=== PATIENT | female | born 1965 | race African-American/Black ===

== ENCOUNTER 2017-08-25 14:58 | Emergency (ER) | payer BC, OTHER ==
[2017-08-25 15:18] VITALS: BP 138/83; PULSE 100; TEMP 98.6; BMI 28.3
--- NOTE | 2017-08-25 16:41 | PDOC ---
History of Present Illness - General Chief Complaint: Cold Symptoms Stated Complaint: FACE PRESSURE Time Seen by Provider: 08/25/17 16:23 History Source: Patient Exam Limitations: No Limitations - History of Present Illness Initial Comments: 08/25/17 16:36 Patient is a 52-year-old female, no significant medical history, currently on Flonase for a sinus infection. She reports seeing her doctor on Saturday was diagnosed with sinus infection and told to take Flonase and Claritin patient reports symptoms have persisted with pain to left side of face, left frontal sinus. The patient denies any headache, no temporal pain, no fever, reports having a cold 1 week prior. Past Medical History: [Denies]. Allergies: No known allergies Medications: [None] Family History: Non-contributory Social History: Denies smoking, alcohol use, or IVDU Vital signs on arrival are [notable for pulse of 96.] Review of Systems GENERAL/CONSTITUTIONAL: [No fever or chills. No weakness. No weight change.] HEAD, EYES, EARS, NOSE AND THROAT: [No change in vision. No ear pain or discharge. No sore throat. No temporal pain, left frontal sinus and maxillary pain.] CARDIOVASCULAR: [No chest pain or shortness of breath.] RESPIRATORY: [No cough, wheezing, or hemoptysis.] GASTROINTESTINAL: [No nausea, vomiting, diarrhea or constipation. No rectal bleeding.] GENITOURINARY: [No dysuria, frequency, or change in urination.] MUSCULOSKELETAL: [No joint or muscle swelling or pain. No neck or back pain.] SKIN AND BREASTS: [No rash or easy bruising.] NEUROLOGIC: [No headache, vertigo, loss of consciousness, or loss of sensation.] PSYCHIATRIC: [No depression or anxiety.] ENDOCRINE: [No increased thirst. No abnormal weight change.] HEMATOLOGIC/LYMPHATIC: [No anemia, easy bleeding, or history of blood clots.] ALLERGIC/IMMUNOLOGIC: [No hives or skin allergy. No latex allergy.] Physical Exam: GENERAL: [The patient is awake, alert, and fully oriented, in no acute distress. ] HEAD: [Normal with no signs of trauma.] EYES: [Pupils equal, round and reactive to light, extraocular movements intact, sclera anicteric, conjunctiva clear. Pain to left frontal and maxillary sinus on palpation pain when bending forward no erythema. No edema to face. No temporal pain.] ENT: [Ears normal, nares patent, oropharynx clear without exudates. Moist mucous membranes. No uvula deviation] NECK: [Normal range of motion, supple without lymphadenopathy, JVD, or masses.] LUNGS: [Breath sounds equal, clear to auscultation bilaterally. No wheezes, and no crackles.] HEART: [Regular rate and rhythm, normal S1 and S2 without murmur, rub or gallop. ] ABDOMEN: [Soft, nontender, normoactive bowel sounds. No guarding, no rebound. No masses. No bruising or abrasions] RECTAL : [Guaiac negative, normal rectal tone.] MUSCULOSKELETAL: [Normal range of motion, no edema. No clubbing or cyanosis. No cords, erythema, or tenderness. No CVA Tenderness with fist.] NEUROLOGICAL: [Cranial nerves II through XII grossly intact. Normal speech, normal gait.] PSYCH: [Normal mood, normal affect.] SKIN: [Warm, Dry, normal turgor, no rashes or lesions noted.] Past History - Past Medical History Allergies/Adverse Reactions: Allergies Allergy/AdvReac Type Severity Reaction Status Date / Time No Known Allergies Allergy Verified 08/25/17 15:15 Home Medications: Ambulatory Orders Amox-Tr/K Cl [Augmentin - 875Mg Tablet] 1 tab PO BID #14 tablet 08/25/17 COPD: No - Immunization History Immunization Up to Date: Yes - Suicide/Smoking/Psychosocial Hx Smoking History: Never smoked Hx Alcohol Use: No Drug/Substance Use Hx: No *Physical Exam - Vital Signs Last Vital Signs Temp Pulse Resp BP Pulse Ox 98.6 F 100 H 18 138/83 99 08/25/17 15:15 08/25/17 15:15 08/25/17 15:15 08/25/17 15:15 08/25/17 15:15 Medical Decision Making - Medical Decision Making 08/25/17 16:40 A/P: Patient with clinical signs of sinusitis I will discharge patient home on Augmentin to continue Flonase follow-up with ENT for neurological signs, no temporal pain to indicate a temporal arteritis. No headache. No visual disturbance. No nystagmus. I discussed the physical exam findings, ancillary test results and final diagnoses with the patient. I answered all of the patient's questions. The patient was satisfied with the care received and felt comfortable with the discharge plan and treatment plan. The patient will call to arrange follow-up and will return to the Emergency Department with any new, persistent or worsening symptoms. *DC/Admit/Observation/Transfer Diagnosis at time of Disposition: Sinusitis Qualifiers: Sinusitis location: frontal Chronicity: acute Recurrence: non-recurrent Qualified Code(s): J01.10 - Acute frontal sinusitis, unspecified - Discharge Dispostion Disposition: HOME Condition at time of disposition: Stable Admit: No - Prescriptions Prescriptions: Amox-Tr/K Cl [Augmentin - 875Mg Tablet] 1 tab PO BID #14 tablet - Referrals Referrals: Marvel Angulo [Primary Care Provider] - Jimmy Singh MD [Staff Physician] - - Patient Instructions Printed Discharge Instructions: Sinusitis Additional Instructions: I recommend follow-up with ENT if symptoms persist after being on antibiotics for 3 days. Continue Flonase and Claritin. Elena for pain - Post Discharge Activity Forms/Work/School Notes: Back to Work
[2017-08-25] MEDS ORDERED: IBUPROFEN 600 MG TABLET (FP) PO ONE ×2 (16:42→16:43)
== END 2017-08-25 17:03 | disposition home or self-care (01) ==
LOC: JERFT 14:58
DX: J01.10 Acute frontal sinusitis, unspecified (principal)
CPT/HCPCS: 99281-25

== ENCOUNTER 2017-08-26 19:37 | Emergency (ER) | payer OTHER ==
--- NOTE | 2017-08-26 20:27 | PDOC ---
Rapid Medical Evaluation Time Seen by Provider: 08/26/17 20:27 Medical Evaluation: Allergies Allergy/AdvReac Type Severity Reaction Status Date / Time No Known Allergies Allergy Verified 08/25/17 15:15 08/26/17 20:28 The patient presents with a chief complaint of: Light headedness, numbness and tingling down the arm started at 5:30 this evening lasting approximately 30 minutes. Seen last night for a sinus infection, on augmentin. I have performed a brief in-person evaluation of this patient; Pertinent physical exam findings: ambulatory, in no respiratory distress. Afebrile. EOMI, equal lead engineer strength. Normal speech I have ordered the following: Deferred to Provider The patient will proceed to the ED for further evaluation.
[2017-08-26 20:33] VITALS: TEMP 98.9; BMI 28.3
--- NOTE | 2017-08-26 20:58 | PDOC ---
Attending Attestation - HPI HPI: 08/26/17 22:44 Pt is a 52yo F with a PMHx of Raynaud's and recent sinus infection who presents with unilateral numbness and tingling since 5:30pm this evening. It lasted for about 30 minutes, not associated with weakness, no gait deficits. - Physicial Exam PE: 08/26/17 22:48 GENERAL: Well developed, well nourished. Awake and alert. No acute distress. CARDIOVASCULAR: Regular rate and rhythm. No murmurs, rubs, or gallops. Distal pulses are 2+ and symmetric. PULMONARY: No evidence of respiratory distress. Lungs clear to auscultation bilaterally. No wheezing, rales or rhonchi. ABDOMINAL: Soft. Non-tender. Non-distended. No rebound or guarding. No organomegaly. Normoactive bowel sounds. NEUROLOGICAL: Alert, awake, appropriate. Cranial nerves 2-12 intact. No deficits to light touch and temperature in face, upper extremities and lower extremities. No motor deficits in the in face, upper extremities and lower extremities. Normoreflexic in the upper and lower extremities. Normal speech. Gait is normal without ataxia. - Medical Decision Making 08/26/17 21:01 Documentation prepared by Veronica Moy, acting as medical office asst for Lidya Giles MD. <Veronica Moy - Last Filed: 08/26/17 22:47> - Resident Resident Name: Luciano Wallsmi - ED Attending Attestation I have performed the following: I have examined & evaluated the patient, The case was reviewed & discussed with the resident, I agree w/resident's findings & plan, Exceptions are as noted - Medical Decision Making ct scan ofhead no acute intracranial pathology 08/27/17 00:18 <Lidya Giles - Last Filed: 08/27/17 00:18> NIH Stroke Scale - Last Known Well Date/Time & Onset Date Last Known Well: 08/26/17 Time Last Known Well: 17:30 - Initial Evaluation Level of consciousness: Alert Ask patient the month and their age: Answers both correctly Ask patient to open & close eyes; make fist and let go: Obeys both correctly Best gaze (horizontal eye movement): Normal Visual field testing: No visual field loss Facial paresis (Show teeth/raise eyebrows/close eyes tight): Normal symmetrical movement Motor Function: Left Arm: Normal Motor Function: Right Arm: Normal (extends arm 90 (or 45) degrees for 10 seconds without drift Motor Function: Left Leg: Normal (extends leg 30 degrees for 5 seconds without drift) Motor Function: Right Leg: Normal (extends leg 30 degrees for 5 seconds without drift) Limb Ataxia: No ataxia Sensory(Use pinprick test arms,legs,trunk,face/side to side): Normal Best language (Describe picture, name items, read sentences): No Aphasia Dysarthria (read several words): Normal articulation Extinction and Inattention: No abnormality - Total Score NIH Stroke Scale Score: 0 <Veronica Moy - Last Filed: 08/26/17 22:47>
[2017-08-26 21:14] LABS: BASO % 0.9 % (0-2.0); EOS % 0.8 % (0-4.5); HEMATOCRIT 43.2 % (32.4-45.2); HEMOGLOBIN 14.4 GM/dL (10.7-15.3); LYMPH % 31.5 % (8-40); MCH 30.5 pg (25.7-33.7); MCHC 33.4 g/dl (32.0-36.0); MEAN CELL VOLUME 91.1 fl (80-96); MEAN PLT VOLUME 8.2 fl (7.5-11.1); MONO % 6.8 % (3.8-10.2); PLATELET COUNT 286 K/MM3 (134-434); RBC 4.74 M/mm3 (3.60-5.2); RDW 12.9 % (11.6-15.6); WHITE BLOOD COUNT 6.6 K/mm3 (4.0-10.0)
[2017-08-26 21:16] LABS: URINE APPEARANCE SLCLOUDY; URINE BILIRUBIN NEGATIVE (NEGATIVE); URINE BLOOD NEGATIVE (NEGATIVE); URINE COLOR STRAW; URINE GLUCOSE (UA) NEGATIVE (NEGATIVE); URINE KETONE NEGATIVE (NEGATIVE); URINE NITRITE NEGATIVE (NEGATIVE); URINE PROTEIN NEGATIVE (NEGATIVE); URINE UROBILINOGEN NEGATIVE mg/dL (0.2-1.0)
[2017-08-26 21:17] LABS: URINE LEUK ESTERASE 1+ (NEGATIVE)
[2017-08-26 21:23] LABS: EPI CELLS RARE /HPF (FEW); URINE MUCUS RARE
[2017-08-26 21:27] LABS: INR 0.96 (0.82-1.09); PROTHROMBIN TIME (PATIENT) 10.9 SEC (9.98-11.88)
--- NOTE | 2017-08-26 21:32 | PDOC ---
History of Present Illness - General Chief Complaint: CVA/TIA Stated Complaint: FATIGUE Time Seen by Provider: 08/26/17 20:27 - History of Present Illness Initial Comments: Pt is a 52yo F with a PMHx of Raynaud's and recent sinus infection who presents with unilateral numbness and tingling since 5:30pm this evening. It lasted for about 30 minutes, not associated with weakness, no gait deficits. No prior episodes. For the past 3 weeks patient endorses intermittent dizziness w/ associated nausea. Denies headaches, hx of migraines. Patient was seen in the ER yesterday for sinus infection, treated with Augmentin. She currently only endorses tingling in her L index finger, but states she frequently gets these due to her Raynauds. NIHSS 0 NIH Stroke Scale - Initial Evaluation Level of consciousness: Alert Ask patient the month and their age: Answers both correctly Ask patient to open & close eyes; make fist and let go: Obeys both correctly Best gaze (horizontal eye movement): Normal Visual field testing: No visual field loss Facial paresis (Show teeth/raise eyebrows/close eyes tight): Normal symmetrical movement Motor Function: Left Arm: Normal Motor Function: Right Arm: Normal (extends arm 90 (or 45) degrees for 10 seconds without drift Motor Function: Left Leg: Normal (extends leg 30 degrees for 5 seconds without drift) Motor Function: Right Leg: Normal (extends leg 30 degrees for 5 seconds without drift) Limb Ataxia: No ataxia Sensory(Use pinprick test arms,legs,trunk,face/side to side): Normal Best language (Describe picture, name items, read sentences): No Aphasia Dysarthria (read several words): Normal articulation Extinction and Inattention: No abnormality - Total Score NIH Stroke Scale Score: 0 Past History - Past Medical History Allergies/Adverse Reactions: Allergies Allergy/AdvReac Type Severity Reaction Status Date / Time No Known Allergies Allergy Verified 08/26/17 20:29 Home Medications: Ambulatory Orders Amox-Tr/K Cl [Augmentin - 875Mg Tablet] 1 tab PO BID #14 tablet 08/25/17 Biotin 0 mg PO DAILY 08/26/17 Cholecalciferol (Vitamin D3) [Vitamin D3 -] 0 unit PO DAILY 08/26/17 COPD: No - Immunization History Immunization Up to Date: Yes - Suicide/Smoking/Psychosocial Hx Smoking History: Never smoked Hx Alcohol Use: No Drug/Substance Use Hx: No Review of Systems - Review of Systems Able to Perform ROS?: Yes Constitutional: No: Chills, Diaphoresis, Fever HEENTM: No: Eye Pain, Blurred Vision, Tearing Respiratory: No: Cough, Orthopnea, Shortness of Breath Cardiac (ROS): No: Chest Pain, Edema, Irregular Heart Rate ABD/GI: No: Abdominal Distended, Diarrhea, Nausea : No: Burning, Dysuria, Discharge Musculoskeletal: No: Back Pain, Joint Pain, Muscle Pain Integumentary: No: Bruising, Change in Color, Dryness Neurological: No: Headache, Numbness, Paresthesia Psychiatric: No: Anxiety, Depression Endocrine: No: Excessive Sweating, Flushing Hematologic/Lymphatic: No: Anemia, Blood Clots, Easy Bleeding *Physical Exam - Vital Signs Last Vital Signs Temp Pulse Resp BP Pulse Ox 98.9 F 85 16 151/85 99 08/26/17 20:29 08/26/17 20:29 08/26/17 20:29 08/26/17 20:29 08/26/17 20:29 - Physical Exam Comments: GEN: AAOx3, NAD, Lying comfortably HEENT: PERRLA, EOMi CV: S1, S2, RRR LUNG: CTABL ABD: Soft, NT, ND, normoactive BS MSK: No edema, no erythema NEURO: Full neurological exam performed, CN 2-12 intact, no MSK or sensation intact , no disdiadokinesia ED Treatment Course - LABORATORY CBC & Chemistry Diagram: 08/26/17 21:03 08/26/17 21:35 - ADDITIONAL ORDERS Additional order review: Laboratory Results 08/26/17 08/26/17 21:03 21:03 WBC 6.6 RBC 4.74 Hgb 14.4 Hct 43.2 MCV 91.1 MCH 30.5 MCHC 33.4 RDW 12.9 Plt Count 286 MPV 8.2 Neutrophils % 60.0 Lymphocytes % 31.5 Monocytes % 6.8 Eosinophils % 0.8 Basophils % 0.9 Urine Color Straw Urine Appearance Slcloudy Urine pH 5.0 Ur Specific [place] 1.010 Urine Protein Negative Urine Glucose (UA) Negative Urine Ketones Negative Urine Blood Negative Urine Nitrite Negative Urine Bilirubin Negative Urine Urobilinogen Negative Ur Leukocyte Esterase 1+ H 08/26/17 21:03 RBC 4.74 MCV 91.1 MCHC 33.4 RDW 12.9 MPV 8.2 Neutrophils % 60.0 Lymphocytes % 31.5 Monocytes % 6.8 Eosinophils % 0.8 Basophils % 0.9 Medical Decision Making - Medical Decision Making 52yo F with a PMHx of Raynaud's disease who presents with an isolated 30 minutes of L sided numbness and tingling. She currently only has tingling in her L index finger, but intermittently gets these with her Raynaud's. I suspect this is not a stroke, but will order stroke protocol in precaution. *DC/Admit/Observation/Transfer Diagnosis at time of Disposition: Paresthesias - Discharge Dispostion Disposition: HOME Condition at time of disposition: Improved Admit: No - Referrals Referrals: Marvel Angulo [Primary Care Provider] - 7 days Aguilar Benson MD [Staff Physician] - 7 days - Patient Instructions Additional Instructions: You were seen in the Emergency Room due to L sided numbness and tingling. We ordered labs and imaging, all of which are normal. We do not suspect a stroke. We believe you have an infection affecting your inner ear. We would like you to follow up with a Neurologist. Come back to the ER if you experience similar symptoms. - Post Discharge Activity Forms/Work/School Notes: Back to Work
[2017-08-26 22:11] VITALS: BP 137/89; PULSE 88
[2017-08-26 22:15] LABS: ALBUMIN 3.9 g/dl (3.4-5.0); ALK PHOS 91 U/L (45-117); ANION GAP 8 (8-16); BILIRUBIN,TOTAL 0.3 mg/dL (0.2-1.0); BLOOD UREA NITROGEN 7 mg/dL (7-18); CALCIUM 8.9 mg/dL (8.5-10.1); CHLORIDE 105 mmol/L (98-107); CO2 29 mmol/L (21-32); CREATININE 0.9 mg/dL (0.55-1.02); GLUCOSE,RANDOM 116 mg/dL (74-106); POTASSIUM 3.5 mmol/L (3.5-5.1); SGOT/AST 12 U/L (15-37); SGPT/ALT 17 U/L (12-78); SODIUM 142 mmol/L (136-145); TOT PROT 7.5 g/dl (6.4-8.2)
--- NOTE | 2017-08-28 11:00 | EKG ---
Test Reason : Blood Pressure : / mmHG Vent. Rate : 085 BPM Atrial Rate : 085 BPM P-R Int : 154 ms QRS Dur : 082 ms QT Int : 378 ms P-R-T Axes : 067 013 026 degrees QTc Int : 449 ms NORMAL SINUS RHYTHM POSSIBLE LEFT ATRIAL ENLARGEMENT BORDERLINE ECG WHEN COMPARED WITH ECG OF 20-JUL-2003 09:41, NONSPECIFIC T WAVE ABNORMALITY NOW EVIDENT IN ANTERIOR LEADS Confirmed by ELLEN SORENSON, CATALINA ([id number]) on 08/28/2017 10:59:32 AM Referred By: Confirmed By:CATALINA HUGHES MD
== END 2017-08-26 22:49 | disposition home or self-care (01) ==
LOC: JER 19:37
DX: R20.2 Paresthesia of skin (principal); I73.00 Raynaud's syndrome without gangrene
CPT/HCPCS: 36415; 70450-TC; 71046-TC-FY; 80053; 81003; 81015; 85025; 85610; 86850; 86900; 86901; 93005; 93010; 99282-25

== ENCOUNTER 2018-04-18 17:48 | Observation (INO) | payer OTHER ==
--- NOTE | 2018-04-18 18:04 | PDOC ---
Rapid Medical Evaluation Time Seen by Provider: 04/18/18 17:59 Medical Evaluation: Allergies Allergy/AdvReac Type Severity Reaction Status Date / Time No Known Allergies Allergy Verified 04/18/18 17:58 04/18/18 17:59 I have performed a brief in-person evaluation of the patient The patient presents with a chief complaint of: numbness on right side of face today since 6am. Reports a little blurriness in right eye, no heaviness in tongue and no weakness in limbs Pertinent physical exam findings are: NAD HEENT: PERRLA EOMI even and unlabored breathing neuro: moving all limbs freely, able to raise both eyebrows and close eye tightly I have ordered the following: iv access, labs The patient will proceed to the ED for further evaluation.
[2018-04-18 18:29] LABS: EOS % 0.4 % (0-4.5); HEMATOCRIT 42.3 % (32.4-45.2); HEMOGLOBIN 14.2 GM/dL (10.7-15.3); MCH 30.5 pg (25.7-33.7); MCHC 33.5 g/dl (32.0-36.0); MEAN CELL VOLUME 90.8 fl (80-96); MEAN PLT VOLUME 7.9 fl (7.5-11.1); MONO % 6.3 % (3.8-10.2); NEUT % 50.3 % (42.8-82.8); PLATELET COUNT 261 K/MM3 (134-434); RBC 4.65 M/mm3 (3.60-5.2); RDW 13.9 % (11.6-15.6); WHITE BLOOD COUNT 4.7 K/mm3 (4.0-10.0)
[2018-04-18 19:02] LABS: ALBUMIN 4.5 g/dl (3.4-5.0); ALK PHOS 79 U/L (45-117); ANION GAP 11 MMOL/L (8-16); BILIRUBIN,TOTAL 0.5 mg/dL (0.2-1); BLOOD UREA NITROGEN 7 mg/dL (7-18); CALCIUM 9.8 mg/dL (8.5-10.1); CHLORIDE 104 mmol/L (98-107); CO2 27 mmol/L (21-32); CREATININE 0.8 mg/dL (0.55-1.3); GLUCOSE,RANDOM 96 mg/dL (74-106); POTASSIUM 3.6 mmol/L (3.5-5.1); SGOT/AST 14 U/L (15-37); SGPT/ALT 27 U/L (13-61); SODIUM 142 mmol/L (136-145)
--- NOTE | 2018-04-18 19:20 | PDOC ---
History of Present Illness - General History Source: Patient Exam Limitations: No Limitations - History of Present Illness Initial Comments: 04/18/18 19:14 52 year old female with PMH Glossopharyngeal neuralgia, raynauds, herniated disc , cataracts presenting to ED for right sided facial numbness since this morning. She also complains of one episode of blurry vision to right eye today that self resolved. She denies facial pain, headache, tinnitus, weakness, chest pain, shortness of breath, nausea, vomiting, diarrhea, abdominal pain, dizziness. She states she has had numbness in her right leg for 2-3 weeks, worse today, similar to what she has felt with her herniated disc. She had an MRI of her brain 01/2018, reported as normal. She states she had an endoscopy yesterday for chest discomfort, was told it was normal other than polyps. She complains of a sore throat since the procedure. PCP - Adele Orlando Allergies - NKDA <Nenita Ho - Last Filed: 04/19/18 00:08> <Shane Burk - Last Filed: 04/19/18 01:06> - General Chief Complaint: Head/Neck problem Stated Complaint: NUMBNESS Time Seen by Provider: 04/18/18 17:59 NIH Stroke Scale - Last Known Well Date/Time & Onset Date Last Known Well: 04/18/18 Time Last Known Well: 06:00 - Initial Evaluation Level of consciousness: Alert Ask patient the month and their age: Answers both correctly Ask patient to open & close eyes; make fist and let go: Obeys both correctly Best gaze (horizontal eye movement): Normal Visual field testing: No visual field loss Facial paresis (Show teeth/raise eyebrows/close eyes tight): Normal symmetrical movement Motor Function: Left Arm: Normal Motor Function: Right Arm: Normal (extends arm 90 (or 45) degrees for 10 seconds without drift Motor Function: Left Leg: Normal (extends leg 30 degrees for 5 seconds without drift) Motor Function: Right Leg: Normal (extends leg 30 degrees for 5 seconds without drift) Limb Ataxia: No ataxia Sensory(Use pinprick test arms,legs,trunk,face/side to side): Mild to moderate decrease in sensation Best language (Describe picture, name items, read sentences): No Aphasia Dysarthria (read several words): Normal articulation Extinction and Inattention: No abnormality - Total Score NIH Stroke Scale Score: 1 <Nenita Ho - Last Filed: 04/19/18 00:08> Past History - Past Medical History COPD: No Other medical history: glossopharyngeal - Immunization History Immunization Up to Date: Yes - Suicide/Smoking/Psychosocial Hx Smoking History: Never smoked Hx Alcohol Use: No Drug/Substance Use Hx: No Substance Use Type: None <Nenita Ho - Last Filed: 04/19/18 00:08> <Bhargavi,Shane - Last Filed: 04/19/18 01:06> - Past Medical History Allergies/Adverse Reactions: Allergies Allergy/AdvReac Type Severity Reaction Status Date / Time No Known Allergies Allergy Verified 04/18/18 17:58 Home Medications: Ambulatory Orders Biotin 0 mg PO DAILY 08/26/17 Cholecalciferol (Vitamin D3) [Vitamin D3 -] 1,000 unit PO DAILY 08/26/17 Carbamazepine [Tegretol -] 100 mg PO BID 04/18/18 Review of Systems - Review of Systems Able to Perform ROS?: Yes Comments:: 04/18/18 19:18 General: admits to generalized weakness. denies fever, chills, night sweats. HEENT: admits to sore throat. denies rhinorrhea, ear pain, tinnitus. Heart: denies chest pain, palpitations, syncope, lower extremity swelling, diaphoresis. Respiratory: denies shortness of breath, cough, sputum production, hematemesis. Abdomen: denies abdominal pain, nausea, vomiting, diarrhea, constipation, blood in stool. : denies dysuria, increased urinary frequency, hematuria, urinary incontinence , flank pain. Back: denies back pain. Musculoskeletal: denies joint pain, muscle pain, joint swelling. Neurological: admits to facial numbness, right leg tingling. denies headache, dizziness, weakness, facial pain. Skin: denies rash, laceration, abrasion. <Nenita Ho - Last Filed: 04/19/18 00:08> *Physical Exam - Vital Signs Last Vital Signs Temp Pulse Resp BP Pulse Ox 98.7 F 100 H 18 131/88 100 04/18/18 18:00 04/18/18 18:00 04/18/18 18:00 04/18/18 18:00 04/18/18 18:00 - Physical Exam Comments: 04/18/18 19:20 Constitutional: Well-nourished, Well-developed, appearing stated age. HEENT: head is normocephalic, atraumatic. EOMI. PERRLA. Auditory canals patent bilaterally. TM pearly wright, no erythema, no bulging bilaterally. Neck: supple. Full ROM. Heart: regular rhythm. no murmurs, rubs or gallops. Lungs: clear to auscultation bilaterally. no crackles, rhonchi or wheezing. no stridor. Abdomen: soft, nontender. normal bowel sounds. no rebound, guarding, masses. Extremities: Peripheral pulses intact. No lower extremity edema. Neurological: Alert. Oriented x3. CN2-12 intact. 5/5 strength all extremities. Full sensation all extremities. decreased fine touch sensation to V2, V3 distribution on the right. normal sensation left face. Romberg negative. Finger to nose normal. Gait normal. Psych: awake, alert, oriented x3. Follows commands. Answers questions appropriately. <Nenita Ho - Last Filed: 04/19/18 00:08> - Vital Signs Last Vital Signs Temp Pulse Resp BP Pulse Ox 98.7 F 100 H 18 131/88 100 04/18/18 18:00 04/18/18 18:00 04/18/18 18:00 04/18/18 18:00 04/18/18 18:00 <Shane Burk - Last Filed: 04/19/18 01:06> Heart Score/ECG Review - ECG Impressions Comment:: 04/18/18 22:37 EKG performed at 2206 - NSR, rate 73, normal axis, no acute ST changes. <Nenita Ho - Last Filed: 04/19/18 00:08> ED Treatment Course - LABORATORY CBC & Chemistry Diagram: 04/18/18 18:17 04/18/18 22:07 - ADDITIONAL ORDERS Additional order review: Laboratory Results 04/18/18 18:17 Sodium 142 Potassium 3.6 Chloride 104 Carbon Dioxide 27 Anion Gap 11 BUN 7 Creatinine 0.8 Creat Clearance w eGFR > 60 Random Glucose 96 Calcium 9.8 Total Bilirubin 0.5 AST 14 L ALT 27 Alkaline Phosphatase 79 Total Protein 8.0 Albumin 4.5 04/18/18 18:17 RBC 4.65 MCV 90.8 MCHC 33.5 RDW 13.9 MPV 7.9 Neutrophils % 50.3 Lymphocytes % 42.0 H D Monocytes % 6.3 Eosinophils % 0.4 Basophils % 1.0 <Nenita Ho - Last Filed: 04/19/18 00:08> - LABORATORY CBC & Chemistry Diagram: 04/18/18 18:17 04/18/18 22:07 - ADDITIONAL ORDERS Additional order review: Laboratory Results 04/18/18 04/18/18 04/18/18 22:32 22:07 22:07 PT with INR INR Sodium 140 Potassium 3.8 Chloride 104 Carbon Dioxide 30 Anion Gap 6 L BUN 7 Creatinine 0.7 Creat Clearance w eGFR > 60 Random Glucose 88 Calcium 8.8 Total Bilirubin 0.4 AST 19 ALT 23 Alkaline Phosphatase 66 Creatine Kinase 124 Troponin I < 0.02 Total Protein 7.0 Albumin 3.9 Triglycerides 60 Cholesterol 231 H Total LDL Cholesterol 140 H HDL Cholesterol 94 H Urine Color Yellow Urine Appearance Clear Urine pH 5.0 Ur Specific [place] 1.015 Urine Protein Negative Urine Glucose (UA) Negative Urine Ketones 1+ H Urine Blood Negative Urine Nitrite Negative Urine Bilirubin Negative Urine Urobilinogen Negative Ur Leukocyte Esterase Negative Blood Type Cancelled Antibody Screen Cancelled 04/18/18 04/18/18 22:07 18:17 PT with INR 12.00 INR 1.02 Sodium 142 Potassium 3.6 Chloride 104 Carbon Dioxide 27 Anion Gap 11 BUN 7 Creatinine 0.8 Creat Clearance w eGFR > 60 Random Glucose 96 Calcium 9.8 Total Bilirubin 0.5 AST 14 L ALT 27 Alkaline Phosphatase 79 Creatine Kinase Troponin I Total Protein 8.0 Albumin 4.5 Triglycerides Cholesterol Total LDL Cholesterol HDL Cholesterol Urine Color Urine Appearance Urine pH Ur Specific [place] Urine Protein Urine Glucose (UA) Urine Ketones Urine Blood Urine Nitrite Urine Bilirubin Urine Urobilinogen Ur Leukocyte Esterase Blood Type Antibody Screen 04/18/18 18:17 RBC 4.65 MCV 90.8 MCHC 33.5 RDW 13.9 MPV 7.9 Neutrophils % 50.3 Lymphocytes % 42.0 H D Monocytes % 6.3 Eosinophils % 0.4 Basophils % 1.0 - Medications Given in the ED: ED Medications Discontinued Medications Generic Name Dose Route Start Last Admin Trade Name Freq PRN Reason Stop Dose Admin Aspirin 324 mg 04/18/18 23:59 04/19/18 00:45 Asa - PO 04/19/18 00:00 324 mg ONCE ONE Administration <Shane Burk - Last Filed: 04/19/18 01:06> Medical Decision Making - Medical Decision Making 04/18/18 19:47 52 year old female with PMH Glossopharyngeal neuralgia, raynauds, herniated disc , cataracts presenting to ED for right sided facial pain since this morning associated with an episode of blurry vision today. Initial Vital Signs Temp Pulse Resp BP Pulse Ox 98.7 F 100 H 18 131/88 100 04/18/18 18:00 04/18/18 18:00 04/18/18 18:00 04/18/18 18:00 04/18/18 18:00 Afebrile. Mild tachycardia. No hypoxia. Concern for CVA. - Pending CT head. Neuro paged. 04/18/18 20:[address] Benson, who advises CT head, and admission to obtain MRI to rule out stroke. Pending labs, EKG, CXR, CT head. 04/18/18 20:50 CT head report - no evidence of focal intracranial lesion or hemorrhage seen. CBC WBC 4.7 K/mm3 (4.0-10.0) 04/18/18 18:17 RBC 4.65 M/mm3 (3.60-5.2) 04/18/18 18:17 Hgb 14.2 GM/dL (10.7-15.3) 04/18/18 18:17 Hct 42.3 % (32.4-45.2) 04/18/18 18:17 MCV 90.8 fl (80-96) 04/18/18 18:17 MCH 30.5 pg (25.7-33.7) 04/18/18 18:17 MCHC 33.5 g/dl (32.0-36.0) 04/18/18 18:17 RDW 13.9 % (11.6-15.6) 04/18/18 18:17 Plt Count 261 K/MM3 (134-434) 04/18/18 18:17 MPV 7.9 fl (7.5-11.1) 04/18/18 18:17 Absolute Neuts (auto) 2.3 K/mm3 (1.5-8.0) 04/18/18 18:17 Neutrophils % 50.3 % (42.8-82.8) 04/18/18 18:17 Lymphocytes % 42.0 % (8-40) H D 04/18/18 18:17 Monocytes % 6.3 % (3.8-10.2) 04/18/18 18:17 Eosinophils % 0.4 % (0-4.5) 04/18/18 18:17 Basophils % 1.0 % (0-2.0) 04/18/18 18:17 Nucleated RBC % 0 % (0-0) 04/18/18 18:17 No leukocytosis. No anemia. CMP Sodium 142 mmol/L (136-145) 04/18/18 18:17 Potassium 3.6 mmol/L (3.5-5.1) 04/18/18 18:17 Chloride 104 mmol/L (98-107) 04/18/18 18:17 Carbon Dioxide 27 mmol/L (21-32) 04/18/18 18:17 Anion Gap 11 MMOL/L (8-16) 04/18/18 18:17 BUN 7 mg/dL (7-18) 04/18/18 18:17 Creatinine 0.8 mg/dL (0.55-1.3) 04/18/18 18:17 Creat Clearance w eGFR > 60 (>60) 04/18/18 18:17 Random Glucose 96 mg/dL (74-106) 04/18/18 18:17 Calcium 9.8 mg/dL (8.5-10.1) 04/18/18 18:17 Total Bilirubin 0.5 mg/dL (0.2-1) 04/18/18 18:17 AST 14 U/L (15-37) L 04/18/18 18:17 ALT 27 U/L (13-61) 04/18/18 18:17 Alkaline Phosphatase 79 U/L (45-117) 04/18/18 18:17 Total Protein 8.0 g/dl (6.4-8.2) 04/18/18 18:17 Albumin 4.5 g/dl (3.4-5.0) 04/18/18 18:17 No electrolyte abnormality. LFTs normal. 04/18/18 22:41 Pt will be admitted for possible CVA per neuro request. Urine Test Results Urine Color Yellow 04/18/18: Urine Appearance Clear 04/18/18: Urine pH 5.0 (5.0-8.0) 04/18/18: Ur Specific [place] 1.015 (1.001-1.035) 04/18/18: Urine Protein Negative (NEGATIVE) 04/18/18: Urine Glucose (UA) Negative (NEGATIVE) 04/18/18: Urine Ketones 1+ (NEGATIVE) H 04/18/18: Urine Blood Negative (NEGATIVE) 04/18/18: Urine Nitrite Negative (NEGATIVE) 04/18/18: Urine Bilirubin Negative (<2.0 mg/dL) 04/18/18: Ur Leukocyte Esterase Negative (NEGATIVE) 04/18/18: No evidence of UTI. 04/19/18 00:[address] Marie, who will accept the admission and assume care for the patient. <Nenita Ho - Last Filed: 04/19/18 00:08> *DC/Admit/Observation/Transfer - Discharge Dispostion Decision to Admit order: Yes <Nenita Ho - Last Filed: 04/19/18 00:08> - Discharge Dispostion Decision to Admit order: Yes <Shane Burk - Last Filed: 04/19/18 01:06> Diagnosis at time of Disposition: Facial numbness - Discharge Dispostion Condition at time of disposition: Stable
--- NOTE | 2018-04-18 19:27 | PDOC ---
Attending Attestation - HPI HPI: 04/18/18 19:38 The patient is a 52 year old female, with a significant past medical history of Raynaud's, Glossopharyngeal neuralgia, herniated discs, and cataracts, who presents to the emergency department with, right lower facial numbness without pain and blurred vision of the right eye. She had an endoscopy done yesterday awaiting results and a brain MRI done 01/2018 without pertinent findings. The patient denies any recent shortness of breath, weakness, or headache. Allergies: NKDA Social history: Nonsmoker. Denies EtOH use and recreational drug use. Primary Care Physician: Dr. Angulo - Medical Decision Making 04/18/18 19:[address] Prem Benson's answering service, healthcare management consultant neurologist, awaiting call back. 04/18/18 20:[address] Benson, case discussed with resident Dr. Nenita Ho. <Raji Gan - Last Filed: 04/18/18 20:13> - Resident Resident Name: Nenita Ho - ED Attending Attestation I have performed the following: I have examined & evaluated the patient, The case was reviewed & discussed with the resident, I agree w/resident's findings & plan, Exceptions are as noted - Physicial Exam PE: 04/18/18 21:00 Patient is awake and alert, resting comfortably, in no distress Normocephalic, atraumatic PERRLA, EOMI, no nystagmus; visual corea are intact bilaterally; No carotid bruits CTA RRR Cranial nerves II through XII are grossly intact; motor is 5/54; no pronation drift; gait is stable. Fine touch is decreased in V2 and V3 distribution on the right; 04/18/18 21:04 - Medical Decision Making 04/18/18 21:02 52-year-old female with history of Raynaud's syndrome and glossopharyngeal neuralgia presents with paresthesias to the lower half of the right side of face without any other associated symptoms. Differential includes CVA versus TIA versus peripheral peripheral neuropathy. Case discussed with neurology. Cannot rule out stroke at this time without an MRI. CT of head shows no results of acute intracranial pathology. We'll administer aspirin, will admit for further evaluation and treatment. 04/18/18 23:58 Patient not a TPA candidate due to onset of symptoms more than 3 hours prior to arrival as well as a low and H2 scale of 1. <Shane Burk - Last Filed: 04/18/18 23:59> NIH Stroke Scale - Last Known Well Date/Time & Onset Date Last Known Well: 04/18/18 Time Last Known Well: 06:00 - Initial Evaluation Level of consciousness: Alert Ask patient the month and their age: Answers both correctly Ask patient to open & close eyes; make fist and let go: Obeys both correctly Best gaze (horizontal eye movement): Normal Visual field testing: No visual field loss Facial paresis (Show teeth/raise eyebrows/close eyes tight): Normal symmetrical movement Motor Function: Left Arm: Normal Motor Function: Right Arm: Normal (extends arm 90 (or 45) degrees for 10 seconds without drift Motor Function: Left Leg: Normal (extends leg 30 degrees for 5 seconds without drift) Motor Function: Right Leg: Normal (extends leg 30 degrees for 5 seconds without drift) Limb Ataxia: No ataxia Sensory(Use pinprick test arms,legs,trunk,face/side to side): Mild to moderate decrease in sensation Best language (Describe picture, name items, read sentences): No Aphasia Dysarthria (read several words): Normal articulation Extinction and Inattention: No abnormality - Total Score NIH Stroke Scale Score: 1 <Shane Burk - Last Filed: 04/18/18 23:59> Attestations - Attestations 04/18/18 19:38 Documentation prepared by Raji Gan, acting as biomedical instrument technician for Shane Burk MD. <Raji Gan - Last Filed: 04/18/18 20:13>
[2018-04-18] MEDS ORDERED: SODIUM CHLORIDE 1,000 ML IV SCH (20:15)
[2018-04-18 22:44] LABS: URINE APPEARANCE CLEAR; URINE BILIRUBIN NEGATIVE (<2.0 mg/dL); URINE COLOR YELLOW; URINE GLUCOSE (UA) NEGATIVE (NEGATIVE); URINE KETONE 1+ (NEGATIVE); URINE LEUK ESTERASE NEGATIVE (NEGATIVE); URINE NITRITE NEGATIVE (NEGATIVE); URINE PROTEIN NEGATIVE (NEGATIVE); URINE UROBILINOGEN NEGATIVE mg/dL (0.2-1.0)
[2018-04-18 22:57] LABS: ALBUMIN 3.9 g/dl (3.4-5.0); ALK PHOS 66 U/L (45-117); ANION GAP 6 MMOL/L (8-16); BILIRUBIN,TOTAL 0.4 mg/dL (0.2-1); BLOOD UREA NITROGEN 7 mg/dL (7-18); CALCIUM 8.8 mg/dL (8.5-10.1); CHLORIDE 104 mmol/L (98-107); CHOLESTEROL 231 mg/dL (50-200); CO2 30 mmol/L (21-32); CREATININE 0.7 mg/dL (0.55-1.3); GLUCOSE,RANDOM 88 mg/dL (74-106); HDL CHOLESTEROL 94 mg/dL (40-60); SGPT/ALT 23 U/L (13-61); SODIUM 140 mmol/L (136-145); TRIGLYCERIDES 60 mg/dL (0-150)
[2018-04-18 23:03] LABS: POTASSIUM 3.8 mmol/L (3.5-5.1); SGOT/AST 19 U/L (15-37)
[2018-04-18 23:27] LABS: INR 1.02 (0.83-1.09)
[2018-04-18] MEDS ORDERED: ASPIRIN 81 MG CHEWABLE TABLETS PO ONE (23:59)
--- NOTE | 2018-04-19 00:22 | HP ---
CHIEF COMPLAINT: Facial Numbness PCP: Dr. Angulo ([facility]) HISTORY OF PRESENT ILLNESS: 52 y/o F with PMHx on Glossopharyngeal neuralgia (on Carbamazepine) Raynauds syndrome, herniated disc and bilateral cataracts presents to [facility] ED for Right sided facial numbness since this morning. Patient has had left sided numbness in the past that has improved with Carbamazepine however today she presents with Constant numbness over her right cheek for the first time. The numbness does not change with jaw opening or closing and does not change with pressing on her face. She denies any trauma, recent falls, rashes or injections to the area. She is unable to identify any exacerbating or relieving factors. Currently , her numbness has improved and she believes she is regaining feeling in her face. She also experienced a single episode of blurry vision in her right eye that has since resolved. She additionally complains of tinnitus that is present during my interview. She complains of a sore throat from an endoscopy yesterday but denies any difficulty swallowing. Patient feels numbness, tingling since January that radiates down her right leg, she says is due to her disk herniation. Denies facial pain, headache, visual aura, weakness, fevers, chills chest pain, shortness of breath, nausea, vomiting, dizziness. Her only recent medication change is decreasing her Carbamazepine dose from 200mg Daily to 100mg Daily. Denies any sick contacts. ER course was notable for: (1) Neurology (Dr. Benson) consulted (2) ASA 324mg, NS 1 Bolus (3) Head CT without Contrast: No evidence of a focal intracranial lesion or hemorrhage seen. Recent Travel: [employer] this past January [place] this past December PAST MEDICAL HISTORY: As per HPI PAST SURGICAL HISTORY: Hysterectomy Social History: Smoking: Denies Alcohol: Denies Drugs: Denies Family History: mom: Lung Ca Dad: Heart Disease Allergies No Known Allergies Allergy (Verified 04/18/18 17:58) HOME MEDICATIONS: Home Medications Medication Instructions Recorded Biotin 0 mg PO DAILY 08/26/17 Cholecalciferol (Vitamin D3) 1,000 unit PO DAILY 08/26/17 [Vitamin D3 -] Carbamazepine [Tegretol -] 100 mg PO BID 04/18/18 REVIEW OF SYSTEMS CONSTITUTIONAL: Absent: fever, chills, diaphoresis, generalized weakness, malaise, loss of appetite, weight change HEENT: Present: throat pain Absent: rhinorrhea, nasal congestion, throat swelling, difficulty swallowing, mouth swelling, ear pain, eye pain, visual changes CARDIOVASCULAR: Absent: chest pain, syncope, palpitations, irregular heart rate, lightheadedness , peripheral edema RESPIRATORY: Absent: cough, shortness of breath, dyspnea with exertion, orthopnea, wheezing, stridor, hemoptysis GASTROINTESTINAL: Absent: abdominal pain, abdominal distension, nausea, vomiting, diarrhea, constipation, melena, hematochezia GENITOURINARY: Absent: dysuria, frequency, urgency, hesitancy, hematuria, flank pain, genital pain MUSCULOSKELETAL: Absent: myalgia, arthralgia, joint swelling, back pain, neck pain SKIN: Absent: rash, itching, pallor HEMATOLOGIC/IMMUNOLOGIC: Absent: easy bleeding, easy bruising, lymphadenopathy, frequent infections ENDOCRINE: Absent: unexplained weight gain, unexplained weight loss, heat intolerance, cold intolerance NEUROLOGIC: Present: Facial numbness Absent: headache, focal weakness or paresthesias, dizziness, unsteady gait, seizure, mental status changes, bladder or bowel incontinence PSYCHIATRIC: Absent: anxiety, depression, suicidal or homicidal ideation, hallucinations. PHYSICAL EXAMINATION Vital Signs - 24 hr 04/18/18 18:00 Temperature 98.7 F Pulse Rate 100 H Respiratory 18 Rate Blood Pressure 131/88 O2 Sat by Pulse 100 Oximetry (%) GENERAL: Awake, alert, and fully oriented, in no acute distress. HEAD: NCAT EYES: PERRLA, EOMI THROAT: Oropharynx clear without exudates. Moist mucous membranes. Uvula Midline. NECK: Normal ROM, No JVD, No Carotid Bruit LUNGS: Breath sounds equal, clear to auscultation bilaterally. No wheezes. HEART: Regular rate and rhythm, normal S1 and S2 without murmur ABDOMEN: Soft, nontender, not distended, normoactive bowel sounds, no guarding LOWER EXTREMITIES: 2+ pulses. No calf tenderness. No peripheral edema. NEUROLOGICAL: A&Ox3, Cranial nerves II-XII intact. Normal speech. Normal gait. 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 C5-T1 and L4-S1 gross sensation intact. 2+ patellar reflex, No Pronator drift. Rapid alternating hand movements, heel to lugo and finger to nose all intact. PSYCHIATRIC: Cooperative. Good eye contact. Appropriate mood and affect. SKIN: Warm, dry, no rashes or lesions noted Laboratory Results - last 24 hr 04/18/18 04/18/18 04/18/18 18:17 18:17 22:07 WBC 4.7 RBC 4.65 Hgb 14.2 Hct 42.3 MCV 90.8 MCH 30.5 MCHC 33.5 RDW 13.9 Plt Count 261 MPV 7.9 Absolute Neuts (auto) 2.3 Neutrophils % 50.3 Lymphocytes % 42.0 H D Monocytes % 6.3 Eosinophils % 0.4 Basophils % 1.0 Nucleated RBC % 0 PT with INR 12.00 INR 1.02 Sodium 142 Potassium 3.6 Chloride 104 Carbon Dioxide 27 Anion Gap 11 BUN 7 Creatinine 0.8 Creat Clearance w eGFR > 60 Random Glucose 96 Calcium 9.8 Total Bilirubin 0.5 AST 14 L ALT 27 Alkaline Phosphatase 79 Creatine Kinase Troponin I Total Protein 8.0 Albumin 4.5 Triglycerides Cholesterol Total LDL Cholesterol HDL Cholesterol Urine Color Urine Appearance Urine pH Ur Specific [place] Urine Protein Urine Glucose (UA) Urine Ketones Urine Blood Urine Nitrite Urine Bilirubin Urine Urobilinogen Ur Leukocyte Esterase Blood Type Antibody Screen 04/18/18 04/18/18 04/18/18 22:07 22:07 22:32 WBC RBC Hgb Hct MCV MCH MCHC RDW Plt Count MPV Absolute Neuts (auto) Neutrophils % Lymphocytes % Monocytes % Eosinophils % Basophils % Nucleated RBC % PT with INR INR Sodium 140 Potassium 3.8 Chloride 104 Carbon Dioxide 30 Anion Gap 6 L BUN 7 Creatinine 0.7 Creat Clearance w eGFR > 60 Random Glucose 88 Calcium 8.8 Total Bilirubin 0.4 AST 19 ALT 23 Alkaline Phosphatase 66 Creatine Kinase 124 Troponin I < 0.02 Total Protein 7.0 Albumin 3.9 Triglycerides 60 Cholesterol 231 H Total LDL Cholesterol 140 H HDL Cholesterol 94 H Urine Color Yellow Urine Appearance Clear Urine pH 5.0 Ur Specific [place] 1.015 Urine Protein Negative Urine Glucose (UA) Negative Urine Ketones 1+ H Urine Blood Negative Urine Nitrite Negative Urine Bilirubin Negative Urine Urobilinogen Negative Ur Leukocyte Esterase Negative Blood Type Cancelled Antibody Screen Cancelled Active Medications Carbamazepine (Tegretol -) 100 mg PO DAILY [place] Sodium Chloride (Normal Saline -) 1,000 mls @ 42 mls/hr IV ASDIR [facility] Last Admin: 04/19/18 00:45 Dose: 42 mls/hr ASSESSMENT/PLAN: 52 y/o F with PMHx on Glossopharyngeal neuralgia (on Carbamazepine) Raynauds syndrome, herniated disc and bilateral cataracts presents to [facility] ED for Right sided facial. 1. Right sided facial numbness -No focal neurological deficits noted on exam however patient complains of right side facial numbness Accompanied by Right eye blurry vision and Tinnitus, Will need to r/o CVA/TIA -Unclear if this is a manifestation of her recent decrease in Carbamazepine dose from 200mg Daily to 100mg Daily -Neurology (Dr. Benson) consulted by ED, Given ASA 324mg -Head CT without Contrast: No evidence of a focal intracranial lesion or hemorrhage seen -Cholesterol 231, Total LDL Cholesterol 140 -Echo ordered -Can consider Brain MRI, Carotid Dopplers pending neuro eval -continue to monitor on Tele, Neuro checks Q4h 2. Right Leg Numbness, Tingling - chronic -Patient says this is due to her disk herniation -Can consider further spine imaging or workup as outpatient pending Neuro eval -Neurology (Dr. Benson) consulted 3. Glossopharyngeal neuralgia -Restarted home dose Carbamazepine, Will need med reconciled 4. FEN -PO Fluids -Lytes WNL -Regular diet 5. PPx - DVTs: SCDs, will hold heparin in the setting of possible CVA Dispo: Tele-Obs, Will need med reconciled Visit type - Emergency Visit Emergency Visit: Yes ED Registration Date: 04/18/18 Care time: The patient presented to the Emergency Department on the above date and was hospitalized for further evaluation of their emergent condition. - New Patient This patient is new to me today: Yes Date on this admission: 04/19/18 - Critical Care Critical Care patient: No Hospitalist Screening - Colonoscopy Questionnaire Colonoscopy Questionnaire: Colonoscopy Questionnaire - Patient: 50 - 75 years old and never had a screening colonoscopy: Unknown History of colon or rectal polyps, or CA: Unknown History of IBD, Crohn's disease or UC: Unknown History of abdominal radiation therapy as a child: Unknown - Relative: 1 with colon or rectal CA, or polyps at age 60 or younger: Unknown Colon or rectal CA diagnosed at age 45 or younger: Unknown Multiple relatives with colon or rectal CA: Unknown - Outcome: Screening Result: Negative Screen
[2018-04-19] MEDS ORDERED: ASPIRIN COATED 81 MG TABLET.EC ONE (00:47)
--- NOTE | 2018-04-19 05:47 | PN ---
Teaching Attending Note Name of Resident: Nata Banerjee ATTENDING PHYSICIAN STATEMENT I saw and evaluated the patient. I reviewed the resident's note and discussed the case with the resident. I agree with the resident's findings and plan as documented. SUBJECTIVE: OBJECTIVE: ASSESSMENT AND PLAN: this is a 52F old female with hx glossopharngeal neuralgia presented to the hospital for right sided facial pain, patient admitted for TIA plan: admit to tele for observation neurloogy evaluation neurological watch continue carbamezapine for the neuralgia [patient is complaining of numbness in the lower ext on the right buttocks extending to the thigh, without any fecal or urine incontinence, no limb weakness. patient stated she has history of herniated disk - neurology evaluation for the herniated disk.
[2018-04-19 07:08] LABS: BASO % 0.6 % (0-2.0); EOS % 1.4 % (0-4.5); HEMATOCRIT 36.6 % (32.4-45.2); HEMOGLOBIN 12.2 GM/dL (10.7-15.3); LYMPH % 60.6 % (8-40); MCH 30.2 pg (25.7-33.7); MCHC 33.4 g/dl (32.0-36.0); MEAN CELL VOLUME 90.4 fl (80-96); MEAN PLT VOLUME 8.1 fl (7.5-11.1); NEUT % 28.4 % (42.8-82.8); PLATELET COUNT 216 K/MM3 (134-434); RBC 4.04 M/mm3 (3.60-5.2); RDW 13.7 % (11.6-15.6); WHITE BLOOD COUNT 4.2 K/mm3 (4.0-10.0)
[2018-04-19 07:56] LABS: ALBUMIN 3.5 g/dl (3.4-5.0); ALK PHOS 62 U/L (45-117); ANION GAP 9 MMOL/L (8-16); BILIRUBIN,TOTAL 0.5 mg/dL (0.2-1); BLOOD UREA NITROGEN 7 mg/dL (7-18); CALCIUM 9.1 mg/dL (8.5-10.1); CHLORIDE 106 mmol/L (98-107); CO2 28 mmol/L (21-32); CREATININE 0.6 mg/dL (0.55-1.3); GLUCOSE,RANDOM 75 mg/dL (74-106); MAGNESIUM 2.3 mg/dL (1.8-2.4); PHOSPHOROUS 4.3 mg/dL (2.5-4.9); POTASSIUM 3.4 mmol/L (3.5-5.1); SGOT/AST 9 U/L (15-37); SGPT/ALT 20 U/L (13-61); SODIUM 143 mmol/L (136-145); TOT PROT 6.2 g/dl (6.4-8.2)
[2018-04-19] MEDS ORDERED: POTASSIUM CHLORIDE TABS 20 MEQ TABLET.ER (FP) PO ONE (08:57)
--- NOTE | 2018-04-19 09:51 | DS ---
Physical Exam: SUBJECTIVE: Patient seen and examined Patient is feeling better, stated that she started to experience numbness on right side of her face for 6 weeks now. No fever or chills, has facial neuralgia on the left side started a year ago that she takes Tegretol for it. Patient states that she is stressed out. OBJECTIVE: Vital Signs Temperature 97.8 F 04/19/18 06:30 Pulse Rate 62 04/19/18 06:30 Respiratory Rate 18 04/19/18 06:30 Blood Pressure 137/72 04/19/18 06:30 O2 Sat by Pulse Oximetry (%) 99 04/19/18 03:23 PHYSICAL EXAM GENERAL: The patient is awake, alert, and fully oriented, in no acute distress. HEAD: Normal with no signs of trauma. EYES: PERRL, extraocular movements intact, sclera anicteric, conjunctiva clear. ENT: Ears normal, oropharynx clear without exudates, moist mucous membranes. NECK: Trachea midline, full range of motion, supple. LUNGS: Breath sounds equal, clear to auscultation bilaterally, no wheezes, no crackles, no accessory muscle use. HEART: Regular rate and rhythm, S1, S2 without murmur, rub or gallop. ABDOMEN: Soft, nontender, nondistended, normoactive bowel sounds, no guarding, no rebound, no hepatosplenomegaly, no masses appreciated. EXTREMITIES: 2+ pulses, warm, well-perfused, no edema. NEUROLOGICAL: Cranial nerves II through XII grossly intact. Normal speech, gait not observed. sensation is intact, right facial area decreased sensations > than the left. PSYCH: Normal mood, normal affect. SKIN: Warm, dry, normal turgor, no rashes or lesions noted. Muscu: tenderness on palpation on the right side of her neck. LABS CBCD WBC 4.2 K/mm3 (4.0-10.0) 04/19/18 05:30 RBC 4.04 M/mm3 (3.60-5.2) 04/19/18 05:30 Hgb 12.2 GM/dL (10.7-15.3) 04/19/18 05:30 Hct 36.6 % (32.4-45.2) 04/19/18 05:30 MCV 90.4 fl (80-96) 04/19/18 05:30 MCHC 33.4 g/dl (32.0-36.0) 04/19/18 05:30 RDW 13.7 % (11.6-15.6) 04/19/18 05:30 Plt Count 216 K/MM3 (134-434) 04/19/18 05:30 MPV 8.1 fl (7.5-11.1) 04/19/18 05:30 CMP Sodium 143 mmol/L (136-145) 04/19/18 05:30 Potassium 3.4 mmol/L (3.5-5.1) L 04/19/18 05:30 Chloride 106 mmol/L (98-107) 04/19/18 05:30 Carbon Dioxide 28 mmol/L (21-32) 04/19/18 05:30 Anion Gap 9 MMOL/L (8-16) 04/19/18 05:30 BUN 7 mg/dL (7-18) 04/19/18 05:30 Creatinine 0.6 mg/dL (0.55-1.3) 04/19/18 05:30 Creat Clearance w eGFR > 60 (>60) 04/19/18 05:30 Random Glucose 75 mg/dL (74-106) 04/19/18 05:30 Calcium 9.1 mg/dL (8.5-10.1) 04/19/18 05:30 Total Bilirubin 0.5 mg/dL (0.2-1) 04/19/18 05:30 AST 9 U/L (15-37) L 04/19/18 05:30 ALT 20 U/L (13-61) 04/19/18 05:30 Alkaline Phosphatase 62 U/L (45-117) 04/19/18 05:30 Total Protein 6.2 g/dl (6.4-8.2) L 04/19/18 05:30 Albumin 3.5 g/dl (3.4-5.0) 04/19/18 05:30 CARDIAC ENZYMES Creatine Kinase 124 IU/L (26-192) 04/18/18 22:07 Troponin I < 0.02 ng/ml (0.00-0.05) 04/18/18 22:07 Current Medications Generic Name Dose Route Start Last Admin Trade Name Freq PRN Reason Stop Dose Admin Carbamazepine 100 mg 04/19/18 10:00 Tegretol - PO DAILY [place] Sodium Chloride 1,000 mls @ 42 mls/hr 04/18/18 20:15 04/19/18 00:45 Normal Saline - IV 42 mls/hr [facility] Administration Home Medications Medication Instructions Recorded Biotin 0 mg PO DAILY 08/26/17 Cholecalciferol (Vitamin D3) 1,000 unit PO DAILY 08/26/17 [Vitamin D3 -] Carbamazepine [Tegretol -] 100 mg PO DAILY 04/18/18 Laboratory Tests 04/18/18 22:07 Triglycerides 60 Cholesterol 231 H Total LDL Cholesterol 140 H HDL Cholesterol 94 H HOSPITAL COURSE: Date of Admission:04/18/18 Date of Discharge: 04/19/18 52 y/o F with 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 ED for Right sided facial numbness. # Right sided facial numbness as per patient for 6 weeks. patient had an MRi/ MRA done 6 weeks ago as per patient with negative findings.Will wait for Neuro evaluation. # EKG: LVH , discussed with the patient to follow with her primary and have echo done as an outpatient and and an stress test. will recommend cardiology for her. #Right sided Neck tenderness: will give her one dose of Flexeril and reevaluate her. # Hypokalemia will replete , ordered one dose of Kdur. # High HDL which is good, due to her daily exercise, elevated cholesterol and LDL, will suggest dietary changes low fat/low carb.diet. #Hx of Glossopharyngeal neuralgia continue Carbamazepine DVTs: SCDs once gets evaluated by the neuro will discharge her home. Discharge Summary Reason For Visit: NUMBNESS OF FACE Current Active Problems Facial numbness (Acute) Condition: Stable - Instructions Referrals: Marvel Angulo [Primary Care Provider] - - Home Medications Comprehensive Discharge Medication List: Ambulatory Orders Biotin 0 mg PO DAILY 08/26/17 Cholecalciferol (Vitamin D3) [Vitamin D3 -] 1,000 unit PO DAILY 08/26/17 Carbamazepine [Tegretol -] 100 mg PO DAILY 04/18/18
[2018-04-19] MEDS: carBAMazepine 100 MG TAB.CHEW PO SCH (10:00)
[2018-04-19] MEDS ORDERED: CYCLOBENZAPRINE HCL 10 MG TABLET (FP) PO ONE (10:00)
[2018-04-19 13:44] LABS: ANISOCYTOSIS 0; MACROCYTOSIS 0; PLATELET ESTIMATE NORMAL
--- NOTE | 2018-04-19 15:53 | CON.NEURO ---
Consult - Alcohol/Substance Use Hx Alcohol Use: No - Smoking History Smoking history: Never smoked Home Medications - Allergies Allergies/Adverse Reactions: Allergies Allergy/AdvReac Type Severity Reaction Status Date / Time No Known Allergies Allergy Verified 04/18/18 17:58 - Home Medications Home Medications: Ambulatory Orders Biotin 0 mg PO DAILY 08/26/17 Cholecalciferol (Vitamin D3) [Vitamin D -] 1,000 unit PO DAILY 08/26/17 Carbamazepine [Tegretol -] 100 mg PO DAILY 04/18/18 Physical Exam-Neuro Vital Signs: Vital Signs Temperature 98 F 04/19/18 14:36 Pulse Rate 88 04/19/18 14:36 Respiratory Rate 18 04/19/18 14:36 Blood Pressure 122/80 04/19/18 14:36 O2 Sat by Pulse Oximetry (%) 99 04/19/18 03:23 Labs: CBC, BMP 04/19/18 05:30 04/19/18 05:30 INR, PTT INR 1.02 (0.83-1.09) 04/18/18 22:07 Assessment/Plan cc Right face numbness HPI 52 year old female hsitory of Glosspharyngeal neuralgia ( cbz) and Reynauds syndrome, Lumbar herniated disc, and cataract. She developed right side of face numbness and now getting better. She denies any facial pain and face numbness. Patient had ct head is normal. She did have mri of brain in february 2018 and it was unremarkable. She denies any history of smoking, htn , hld or any family member having stroke at young age. She also have right leg tinglign numbness, and she has PMH as above PSH: Hysterectomy Social Hx: Denies any toxic habits, works at [employer] Family History: mom: Lung Ca Dad: Heart Disease Allergies No Known Allergies Allergy (Verified 04/18/18 17:58) HOME MEDICATIONS: Home Medications Medication Instructions Recorded Biotin 0 mg PO DAILY 08/26/17 Cholecalciferol (Vitamin D3) 1,000 unit PO DAILY 08/26/17 [Vitamin D3 -] Carbamazepine [Tegretol -] 100 mg PO BID 04/18/18 Neurological Examination Alert oriented x 3, speech is normal EOMI, PUPILS REACTIVE, no face asymmetry there is no diminshed sensation on right side of face 5/5 all ext sensation is normal reflex are symmetrical CT head unremarkable Assessment- Right sided face numbness, symptoms are resolving, no history of Migraine, or seizure or vascular risk factor for stroke. It could be nonspecific but stroke or Demyelinating lesion need to be ruled out Plan - suggest to do mri of brain and carotid ultrasound - spoke to primary team and continue apsirin for now - will continue to follow Thanking you so much Aguilar Benson MD
--- NOTE | 2018-04-19 17:23 | PN ---
Physical Exam: SUBJECTIVE: Patient seen and examined Patient is feeling better, stated that she started to experience numbness on right side of her face for 6 weeks now. No fever or chills, has facial neuralgia on the left side started a year ago that she takes Tegretol for it. Patient states that she is stressed out. OBJECTIVE: Vital Signs Temperature 97.8 F 04/19/18 06:30 Pulse Rate 62 04/19/18 06:30 Respiratory Rate 18 04/19/18 06:30 Blood Pressure 137/72 04/19/18 06:30 O2 Sat by Pulse Oximetry (%) 99 04/19/18 03:23 PHYSICAL EXAM GENERAL: The patient is awake, alert, and fully oriented, in no acute distress. HEAD: Normal with no signs of trauma. EYES: PERRL, extraocular movements intact, sclera anicteric, conjunctiva clear. ENT: Ears normal, oropharynx clear without exudates, moist mucous membranes. NECK: Trachea midline, full range of motion, supple. LUNGS: Breath sounds equal, clear to auscultation bilaterally, no wheezes, no crackles, no accessory muscle use. HEART: Regular rate and rhythm, S1, S2 without murmur, rub or gallop. ABDOMEN: Soft, nontender, nondistended, normoactive bowel sounds, no guarding, no rebound, no hepatosplenomegaly, no masses appreciated. EXTREMITIES: 2+ pulses, warm, well-perfused, no edema. NEUROLOGICAL: Cranial nerves II through XII grossly intact. Normal speech, sensation is intact, right facial area decreased sensations > than the left. PSYCH: Normal mood, normal affect. SKIN: Warm, dry, normal turgor, no rashes or lesions noted. Muscu: tenderness on palpation on the right side of her neck. LABS CBCD WBC 4.2 K/mm3 (4.0-10.0) 04/19/18 05:30 RBC 4.04 M/mm3 (3.60-5.2) 04/19/18 05:30 Hgb 12.2 GM/dL (10.7-15.3) 04/19/18 05:30 Hct 36.6 % (32.4-45.2) 04/19/18 05:30 MCV 90.4 fl (80-96) 04/19/18 05:30 MCHC 33.4 g/dl (32.0-36.0) 04/19/18 05:30 RDW 13.7 % (11.6-15.6) 04/19/18 05:30 Plt Count 216 K/MM3 (134-434) 04/19/18 05:30 MPV 8.1 fl (7.5-11.1) 04/19/18 05:30 CMP Sodium 143 mmol/L (136-145) 04/19/18 05:30 Potassium 3.4 mmol/L (3.5-5.1) L 04/19/18 05:30 Chloride 106 mmol/L (98-107) 04/19/18 05:30 Carbon Dioxide 28 mmol/L (21-32) 04/19/18 05:30 Anion Gap 9 MMOL/L (8-16) 04/19/18 05:30 BUN 7 mg/dL (7-18) 04/19/18 05:30 Creatinine 0.6 mg/dL (0.55-1.3) 04/19/18 05:30 Creat Clearance w eGFR > 60 (>60) 04/19/18 05:30 Random Glucose 75 mg/dL (74-106) 04/19/18 05:30 Calcium 9.1 mg/dL (8.5-10.1) 04/19/18 05:30 Total Bilirubin 0.5 mg/dL (0.2-1) 04/19/18 05:30 AST 9 U/L (15-37) L 04/19/18 05:30 ALT 20 U/L (13-61) 04/19/18 05:30 Alkaline Phosphatase 62 U/L (45-117) 04/19/18 05:30 Total Protein 6.2 g/dl (6.4-8.2) L 04/19/18 05:30 Albumin 3.5 g/dl (3.4-5.0) 04/19/18 05:30 CARDIAC ENZYMES Creatine Kinase 124 IU/L (26-192) 04/18/18 22:07 Troponin I < 0.02 ng/ml (0.00-0.05) 04/18/18 22:07 Current Medications Generic Name Dose Route Start Last Admin Trade Name Freq PRN Reason Stop Dose Admin Carbamazepine 100 mg 04/19/18 10:00 Tegretol - PO DAILY [place] Sodium Chloride 1,000 mls @ 42 mls/hr 04/18/18 20:15 04/19/18 00:45 Normal Saline - IV 42 mls/hr [facility] Administration Home Medications Medication Instructions Recorded Biotin 0 mg PO DAILY 08/26/17 Cholecalciferol (Vitamin D3) 1,000 unit PO DAILY 08/26/17 [Vitamin D3 -] Carbamazepine [Tegretol -] 100 mg PO DAILY 04/18/18 Laboratory Tests 04/18/18 22:07 Triglycerides 60 Cholesterol 231 H Total LDL Cholesterol 140 H HDL Cholesterol 94 H Assessment and Plan: 52 y/o F with 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 ED for Right sided facial numbness. # Right sided facial numbness as per patient for 6 weeks. patient had an MRi/ MRA done 6 weeks ago as per patient with negative findings.Will wait for Neuro evaluation. # EKG: LVH , discussed with the patient to follow with her primary and have echo done as an outpatient and and an stress test. will recommend cardiology for her. #Right sided Neck tenderness: will give her one dose of Flexeril and reevaluate her. # Hypokalemia will replete , ordered one dose of Kdur. # High HDL which is good, due to her daily exercise, elevated cholesterol and LDL, will suggest dietary changes low fat/low carb.diet. #Hx of Glossopharyngeal neuralgia continue Carbamazepine DVTs: SCDs once gets evaluated by the neuro will discharge her home. Visit type - Emergency Visit Emergency Visit: Yes ED Registration Date: 04/18/18 Care time: The patient presented to the Emergency Department on the above date and was hospitalized for further evaluation of their emergent condition. - New Patient This patient is new to me today: Yes Date on this admission: 04/19/18 - Critical Care Critical Care patient: No - Discharge Referral Referred to [facility] Med P.C.: No
--- NOTE | 2018-04-19 23:21 | EKG ---
Test Reason : Blood Pressure : / mmHG Vent. Rate : 073 BPM Atrial Rate : 073 BPM P-R Int : 168 ms QRS Dur : 086 ms QT Int : 420 ms P-R-T Axes : 069 068 022 degrees QTc Int : 462 ms NORMAL SINUS RHYTHM POSSIBLE LEFT ATRIAL ENLARGEMENT BORDERLINE ECG WHEN COMPARED WITH ECG OF 26-AUG-2017 21:21, NO SIGNIFICANT CHANGE WAS FOUND Confirmed by KELLY VERMA MD ([id number]) on 04/19/2018 11:20:50 PM Referred By: Confirmed By:KELLY VERMA MD
[2018-04-20] MEDS ORDERED: ASPIRIN 325 MG ENTERIC COATED TABLET (FP) PO SCH (10:00)
[2018-04-20] MEDS: carBAMazepine 100 MG TAB.CHEW PO SCH (10:19)
[2018-04-20 10:42] VITALS: BP 124/60; PULSE 80; TEMP 98.5
--- NOTE | 2018-04-20 11:27 | DS ---
Physical Exam: SUBJECTIVE: Patient seen and examined at bedside this morning. Admits resolution of right sided facial numbness. Denies fevers, chills, headache, weakness, change in vision, dizziness, chest pain, palpitations, cough, shortness of breath, abdominal pain, nausea, vomiting, diarrhea. OBJECTIVE: Vital Signs Period Temp Pulse Resp BP Sys/Recinos Pulse Ox Last 24 Hr 97.9 F-98.5 F 68-88 16-18 98-124/60-80 99 PHYSICAL EXAM GENERAL: The patient is awake, alert, and fully oriented, in no acute distress. HEAD: Normocephalic, atraumatic. EYES: PERRLA, extraocular movements intact, sclera anicteric, conjunctiva non- injected b/. ENT: Oropharynx clear without exudates, moist mucous membranes. NECK: Trachea midline, full range of motion, supple without lymphadenopathy. LUNGS: Breath sounds equal, clear to auscultation bilaterally, no wheezes, no crackles, no accessory muscle use. Good inspiratory effort. HEART: Regular rate and rhythm, S1, S2 without murmur, rub or gallop. ABDOMEN: Soft, nontender, nondistended, normoactive bowel sounds, no guarding, no rebound, no hepatosplenomegaly appreciated. EXTREMITIES: 2+ radial and dorsalis pedis pulses b/l. Warm, well-perfused, no lower extremity edema or calf pain b/l. NEUROLOGICAL: Cranial nerves II through XII grossly intact. Normal speech. No gross focal deficits. PSYCH: Normal mood, normal affect, appropriate upon my encounter today. SKIN: Warm, dry. LABS Laboratory Results - last 24 hr 04/19/18 04/19/18 04/19/18 05:30 05:30 05:30 Neutrophils % (Manual) 32.4 L Band Neutrophils % 0.0 Lymphocytes % (Manual) 62.7 H Monocytes % (Manual) 4 Eosinophils % (Manual) 1.0 Basophils % (Manual) 0.0 Myelocytes % (Man) 0 Promyelocytes % (Man) 0 Blast Cells % (Manual) 0 Metamyelocytes 0 Hypochromia 0 Platelet Estimate Normal Polychromasia 0 Poikilocytosis 0 Anisocytosis 0 Microcytosis 0 Macrocytosis 0 Sodium 143 Potassium 3.4 L Chloride 106 Carbon Dioxide 28 Anion Gap 9 BUN 7 Creatinine 0.6 Creat Clearance w eGFR > 60 Random Glucose 75 Calcium 9.1 Phosphorus 4.3 Magnesium 2.3 Total Bilirubin 0.5 AST 9 L ALT 20 Alkaline Phosphatase 62 Total Protein 6.2 L Albumin 3.5 TSH 2.17 Cancelled HOSPITAL COURSE: Date of Admission:04/18/18 Date of Discharge: 04/20/18 Patient is 52 year old female with history of glossopharyngeal neuralgia managed with Carbamazepine, Raynauds, herniated discs, presented with complaint of right sided facial numbness that began on morning of admission. Carbamazepine dose had recently changed from 200mg to 100mg daily. CT head showed no intracranial hemorrhage or pathology. MRI brain showed no intracranial hemorrhage, infract mass lesion, or demyelination. Carotid duplex showed no significant stenosis. Her symptoms improved, and she was discharged with instruction to follow up with primary care physician, neurologist and special forces warrant officer within one week. Minutes to complete discharge: 40 Discharge Summary Reason For Visit: NUMBNESS OF FACE Current Active Problems Facial numbness (Acute) Condition: Stable - Instructions Diet, Activity, Other Instructions: Low fat/low carb. diet. Low sodium diet Follow with your primary care doctor to monitor your blood pressure closely. Echo and stress test is suggested for you to have as an outpatient, will recommend special forces warrant officer for you (Dr.Gregory Dumont). Please follow with your clothes ironer and Fitness Club Manager closely. Follow with neurologist (Dr. Benson) within one week of your discharge. Referrals: Aguilar Benson MD [Staff Physician] - 1 Week Marvel Angulo [Primary Care Provider] - 1 Week Bryan Blas MD [Staff Physician] - 1 Week Disposition: HOME - Home Medications Comprehensive Discharge Medication List: Ambulatory Orders Biotin 0 mg PO DAILY 08/26/17 Cholecalciferol (Vitamin D3) [Vitamin D -] 1,000 unit PO DAILY 08/26/17 Carbamazepine [Tegretol -] 100 mg PO DAILY 04/18/18 Aspirin Coated [Ecotrin -] 325 mg PO DAILY tablet. 04/20/18 This patient is new to me today: Yes Date on this admission: 04/20/18 Emergency Visit: Yes ED Registration Date: 04/18/18 Care time: The patient presented to the Emergency Department on the above date and was hospitalized for further evaluation of their emergent condition. Critical Care patient: No - Discharge Referral Referred to [facility] Med P.C.: No
--- NOTE | 2018-04-20 13:44 | PN ---
Teaching Attending Note Name of Resident: Eh Hernandez ATTENDING PHYSICIAN STATEMENT I saw and evaluated the patient. I reviewed the resident's note and discussed the case with the resident. I agree with the resident's findings and plan as documented. SUBJECTIVE: Patient is comfortable with no acute distress. No further pain. OBJECTIVE: Vital Signs Temperature 98.5 F 04/20/18 10:00 Pulse Rate 80 04/20/18 10:00 Respiratory Rate 18 04/20/18 10:00 Blood Pressure 124/60 04/20/18 10:00 O2 Sat by Pulse Oximetry (%) 98 04/20/18 09:00 GENERAL: The patient is awake, alert, and fully oriented, in no acute distress. HEAD: Normal with no signs of trauma. EYES: PERRL, extraocular movements intact, sclera anicteric, conjunctiva clear. ENT: Ears normal, oropharynx clear without exudates, moist mucous membranes. NECK: Trachea midline, full range of motion, supple. LUNGS: Breath sounds equal, clear to auscultation bilaterally, no wheezes, no crackles, no accessory muscle use. HEART: Regular rate and rhythm, S1, S2 without murmur, rub or gallop. ABDOMEN: Soft, nontender, nondistended, normoactive bowel sounds, no guarding, no rebound, no hepatosplenomegaly, no masses appreciated. EXTREMITIES: 2+ pulses, warm, well-perfused, no edema. NEUROLOGICAL: Cranial nerves II through XII grossly intact. Normal speech, sensation is intact , right facial area sensation from the left. PSYCH: Normal mood, normal affect. SKIN: Warm, dry, normal turgor, no rashes or lesions noted. Muscu: tenderness on palpation on the right side of her neck. CBCD WBC 4.2 K/mm3 (4.0-10.0) 04/19/18 05:30 RBC 4.04 M/mm3 (3.60-5.2) 04/19/18 05:30 Hgb 12.2 GM/dL (10.7-15.3) 04/19/18 05:30 Hct 36.6 % (32.4-45.2) 04/19/18 05:30 MCV 90.4 fl (80-96) 04/19/18 05:30 MCHC 33.4 g/dl (32.0-36.0) 04/19/18 05:30 RDW 13.7 % (11.6-15.6) 04/19/18 05:30 Plt Count 216 K/MM3 (134-434) 04/19/18 05:30 MPV 8.1 fl (7.5-11.1) 04/19/18 05:30 CMP Sodium 143 mmol/L (136-145) 04/19/18 05:30 Potassium 3.4 mmol/L (3.5-5.1) L 04/19/18 05:30 Chloride 106 mmol/L (98-107) 04/19/18 05:30 Carbon Dioxide 28 mmol/L (21-32) 04/19/18 05:30 Anion Gap 9 MMOL/L (8-16) 04/19/18 05:30 BUN 7 mg/dL (7-18) 04/19/18 05:30 Creatinine 0.6 mg/dL (0.55-1.3) 04/19/18 05:30 Creat Clearance w eGFR > 60 (>60) 04/19/18 05:30 Random Glucose 75 mg/dL (74-106) 04/19/18 05:30 Calcium 9.1 mg/dL (8.5-10.1) 04/19/18 05:30 Total Bilirubin 0.5 mg/dL (0.2-1) 04/19/18 05:30 AST 9 U/L (15-37) L 04/19/18 05:30 ALT 20 U/L (13-61) 04/19/18 05:30 Alkaline Phosphatase 62 U/L (45-117) 04/19/18 05:30 Total Protein 6.2 g/dl (6.4-8.2) L 04/19/18 05:30 Albumin 3.5 g/dl (3.4-5.0) 04/19/18 05:30 CARDIAC ENZYMES Creatine Kinase 124 IU/L (26-192) 04/18/18 22:07 Troponin I < 0.02 ng/ml (0.00-0.05) 04/18/18 22:07 Home Medications Medication Instructions Recorded Biotin 0 mg PO DAILY 08/26/17 Cholecalciferol (Vitamin D3) 1,000 unit PO DAILY 08/26/17 [Vitamin D -] Carbamazepine [Tegretol -] 100 mg PO DAILY 04/18/18 Aspirin Coated [Ecotrin -] 325 mg PO DAILY tablet. 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 # Right sided facial numbness as per patient for 6 weeks. patient had an MRi/ MRA done 6 weeks ago as per patient with negative findings.Will wait for Neuro evaluation. Repeat MRI is negative. Carotid duplex negative. # EKG: LVH , discussed with the patient to follow with her primary and have echo done as an outpatient and and an stress test. will recommend cardiology for her to follow up for further w/u. #Right sided Neck tenderness: will give her one dose of Flexeril and reevaluate her. # Hypokalemia will replete, ordered one dose of Kdur. # High HDL which is good, due to her daily exercise, elevated cholesterol and LDL, will suggest dietary changes low fat/low carb.diet. #Hx of Glossopharyngeal neuralgia continue Carbamazepine DVTs: SCDs Discharge patient home
== END 2018-04-20 12:25 | disposition home or self-care (01) ==
LOC: JER 17:48 → JERBED 22:38 → J4W 04-19 04:41
PROVIDERS: ADMIT Internal Medicine; ATTEND Internal Medicine
PROC: 3E0337Z Introduction of Electrolytic and Water Balance Substance into Peripheral Vein, Percutaneous Approach (ICD-10-PCS; principal; 2018-04-18)
DX: R20.0 Anesthesia of skin (principal); G52.1 Disorders of glossopharyngeal nerve; E87.6 Hypokalemia; I51.7 Cardiomegaly; Z87.39 Personal history of other diseases of the musculoskeletal system and connective tissue
CPT/HCPCS: 36415; 70450-TC; 70551-TC; 80053; 81003; 82465; 82550; 83718; 83721; 83735; 84100; 84443; 84478; 84484; 85025; 85610; 93005; 93010; 93880-TC; 99285-25; G0378; J7030